=== PATIENT | female | born 1970 | race Caucasian/White ===

== ENCOUNTER 2021-05-16 13:46 | Emergency (ER) | payer OTHER ==
[~2021-05-16] VITALS: Ht 160 cm; Wt 63.2 kg
[~2021-05-16 13:46] MED LIST: OMEG1CAP23 PO
[2021-05-16 13:51] VITALS: BP 143/91
--- NOTE | 2021-05-16 14:16 | NUR ---
DC INSTRUCTIONS REVIEWED
== END 2021-05-16 14:18 | disposition home or self-care (01) ==
LOC: ED 14:00
DX: U07.1 COVID-19 (principal); J06.9 Acute upper respiratory infection, unspecified; B34.9 Viral infection, unspecified
CPT/HCPCS: 99283; U0003; U0005